=== PATIENT | male | born 1960 | race Caucasian/White ===

== ENCOUNTER 2018-03-20 11:22 | Inpatient (IN) | payer BC ==
--- NOTE | 2018-03-20 11:48 | EDM.PDOC ---
ED HPI GENERAL MEDICAL PROBLEM - General Chief Complaint: Gastrointestinal Problem Stated Complaint: CONSTIPATED,BACK PAIN Time Seen by Provider: 03/20/18 11:47 Source of Information: Reports: Patient - History of Present Illness INITIAL COMMENTS - FREE TEXT/NARRATIVE: HISTORY AND PHYSICAL: History of present illness: [Patient presents with left lower quadrant pain increasing over last couple of days rates 5 out of 10 nonradiating no nausea vomiting chills sweats states he has been having some difficulty with constipation] Review of systems: As per history of present illness and below otherwise all systems reviewed and negative. Past medical history: As per history of present illness and as reviewed below otherwise noncontributory. Surgical history: As per history of present illness and as reviewed below otherwise noncontributory. Social history: No reported history of drug or alcohol abuse. Family history: As per history of present illness and as reviewed below otherwise noncontributory. Physical exam: HEENT: Atraumatic, normocephalic, pupils reactive, negative for conjunctival pallor or scleral icterus, mucous membranes moist, throat clear, neck supple, nontender, trachea midline. Lungs: Clear to auscultation, breath sounds equal bilaterally, chest nontender. Heart: S1S2, regular, negative for clicks, rubs, or JVD. Abdomen: Soft, nondistended, nontender on right left lower quadrant tender slightly protuberant abdomen. Negative for masses or hepatosplenomegaly. Negative for costovertebral tenderness. Pelvis: Stable nontender. Genitourinary: Deferred. Rectal: Deferred. Extremities: Atraumatic, negative for cords or calf pain. Neurovascular unremarkable. Neuro: Awake, alert, oriented. Cranial nerves II through XII unremarkable. Cerebellum unremarkable. Motor and sensory unremarkable throughout. Exam nonfocal. Diagnostics: [CBC CMP troponin lipase Ua Flat and upright ]UTI abdomen pelvis with contrast Therapeutics: Normal saline bolus Cipro 400 mg IV Flagyl 500 mg IV Morphine 2 mg IV ] Impression: diverticulitis with microperforationDefinitive disposition and diagnosis as appropriate pending reevaluation and review of above. lower abdomen Pain Score (Numeric/FACES): 7 - Related Data Allergies Allergy/AdvReac Type Severity Reaction Status Date / Time nut - unspecified Allergy Facial Verified 03/20/18 11:45 Swelling sunflower seed Allergy Facial Verified 03/20/18 11:45 Swelling Home Meds: Home Meds . [No Known Home Meds] 03/20/18 [History] ED ROS GENERAL - Review of Systems Review Of Systems: See Below ED EXAM, GENERAL - Physical Exam Exam: See Below Course - Vital Signs Last Recorded V/S: Last Vital Signs Temp 96.6 F 03/20/18 11:46 Pulse 109 H 03/20/18 11:46 Resp 16 03/20/18 11:46 BP 159/138 H 03/20/18 11:46 Pulse Ox 95 03/20/18 11:46 - Orders/Labs/Meds Orders: Active Orders 24 hr Category Date Time Status UA W/MICROSCOPIC [URIN] Stat Lab 03/20/18 11:58 Ordered Ciprofloxacin in D5W [Cipro in D5W 400 MG/200 ML] 400 Med 03/20/18 14:30 Active mg Premix Bag 1 bag IV Q12H Sodium Chloride 0.9% [Normal Saline] 1,000 ml Med 03/20/18 14:24 Active IV STAT metroNIDAZOLE/Normal Saline [Flagyl 500 MG in NS 100 ML Med 03/20/18 14:24 Active ] 500 mg Premix Bag 1 bag IV ONETIME Medication Orders Ciprofloxacin/Dextrose 400 mg/ (Premix) 200 mls @ 200 mls/hr IV Q12H IVY Metronidazole 500 mg/ Premix 100 mls @ 100 mls/hr IV ONETIME ONE Stop: 03/20/18 15:23 Sodium Chloride (Normal Saline) 1,000 mls @ 999 mls/hr IV STAT ONE Stop: 03/20/18 15:24 Labs: Laboratory Tests 03/20/18 03/20/18 03/20/18 Range/Units 11:58 12:50 12:50 WBC 17.28 H (4.0-11.0) K/uL RBC 4.08 L (4.50-5.90) M/uL Hgb 13.5 (13.0-17.0) g/dL Hct 38.2 (38.0-50.0) % MCV 93.6 (80.0-98.0) fL MCH 33.1 H (27.0-32.0) pg MCHC 35.3 (31.0-37.0) g/dL RDW Std Deviation 41.0 (28.0-62.0) fl RDW Coeff of [place] 12 (11.0-15.0) % Plt Count 308 (150-400) K/uL MPV 8.90 (7.40-12.00) fL Neut % (Auto) 82.0 H (48.0-80.0) % Lymph % (Auto) 5.6 L (16.0-40.0) % [place] % (Auto) 12.2 (0.0-15.0) % Eos % (Auto) 0.1 (0.0-7.0) % Baso % (Auto) 0.1 (0.0-1.5) % Neut # (Auto) 14.2 H (1.4-5.7) K/uL Lymph # (Auto) 1.0 (0.6-2.4) K/uL [place] # (Auto) 2.1 H (0.0-0.8) K/uL Eos # (Auto) 0.0 (0.0-0.7) K/uL Baso # (Auto) 0.0 (0.0-0.1) K/uL Nucleated RBC % 0.0 /100WBC Nucleated RBCs # 0 K/uL Sodium 130 L (136-148) mmol/L Potassium 3.7 (3.5-5.1) mmol/L Chloride 95 L (98-107) mmol/L Carbon Dioxide 30.3 (21.0-32.0) mmol/L BUN 14 (7.0-18.0) mg/dL Creatinine 1.2 (0.8-1.3) mg/dL Est Cr Clr Drug Dosing 71.47 mL/min Estimated GFR (MDRD) > 60.0 ml/min Glucose 152 H (74-106) mg/dL Calcium 8.5 (8.5-10.1) mg/dL Total Bilirubin 0.6 (0.2-1.0) mg/dL AST 14 L (15-37) IU/L ALT 27 (14-63) IU/L Alkaline Phosphatase 61 (46-116) U/L Troponin I < 0.050 (0.000-0.056) ng/mL Total Protein 7.3 (6.4-8.2) g/dL Albumin 3.0 L (3.4-5.0) g/dL Globulin 4.3 H (2.0-3.5) g/dL Albumin/Globulin Ratio 0.7 L (1.3-2.8) Lipase 69 L (73-393) U/L Urine Color YELLOW Urine Appearance CLEAR Urine pH 6.0 (5.0-8.0) Ur Specific [place] 1.025 (1.001-1.035) Urine Protein 30 (NEGATIVE) mg/dL Urine Glucose (UA) NEGATIVE (NEGATIVE) mg/dL Urine Ketones 40 H (NEGATIVE) mg/dL Urine Occult Blood TRACE-INTACT (NEGATIVE) Urine Nitrite NEGATIVE (NEGATIVE) Urine Bilirubin SMALL H (NEGATIVE) Urine Ictotest NEGATIVE Urine Urobilinogen 0.2 (<2.0) EU/dL Ur Leukocyte Esterase NEGATIVE (NEGATIVE) Urine RBC 1-3 (0-2/HPF) Urine WBC 0-2 (0-5/HPF) Ur Epithelial Cells OCCASIONAL (NONE-FEW) Urine Bacteria 1+ H (NEGATIVE) Hyaline Casts 6-8 (0-2/LPF) Urine Mucus MODERATE (NONE-MOD) Meds: Medications Generic Name Dose Route Start Last Admin Trade Name Freq PRN Reason Stop Dose Admin Ciprofloxacin/Dextrose 400 mg/ 200 mls @ 200 mls/hr 03/20/18 14:30 Premix IV Q12H IVY Metronidazole 500 mg/ Premix 100 mls @ 100 mls/hr 03/20/18 14:24 IV 03/20/18 15:23 ONETIME ONE Sodium Chloride 1,000 mls @ 999 mls/hr 03/20/18 14:24 Normal Saline IV 03/20/18 15:24 STAT ONE Discontinued Medications Generic Name Dose Route Start Last Admin Trade Name Freq PRN Reason Stop Dose Admin Sodium Chloride 1,000 mls @ 999 mls/hr 03/20/18 13:06 03/20/18 14:00 Normal Saline IV 03/20/18 14:06 999 mls/hr STAT ONE Administration Iopamidol 100 ml 03/20/18 13:37 03/20/18 13:49 Isovue Multipack-370 (76%) IVPUSH 03/20/18 13:38 100 ml ONETIME STA Administration Morphine Sulfate 2 mg 03/20/18 14:24 Morphine IVPUSH 03/20/18 14:25 ONETIME ONE Departure - Departure Time of Disposition: 14:35 Disposition: Admitted As Inpatient 66 Condition: Fair Clinical Impression: Diverticulitis - Discharge Information Referrals: PCP,None [Primary Care Provider] - Forms: ED Department Discharge - My Orders Last 24 Hours: My Active Orders 03/20/18 11:58 UA W/MICROSCOPIC [URIN] Stat 03/20/18 14:24 Sodium Chloride 0.9% [Normal Saline] 1,000 ml IV STAT metroNIDAZOLE/Normal Saline [Flagyl 500 MG in NS 100 ML] 500 mg Premix Bag 1 bag IV ONETIME 03/20/18 14:30 Ciprofloxacin in D5W [Cipro in D5W 400 MG/200 ML] 400 mg Premix Bag 1 bag IV Q12H - Assessment/Plan Last 24 Hours: My Active Orders 03/20/18 11:58 UA W/MICROSCOPIC [URIN] Stat 03/20/18 14:24 Sodium Chloride 0.9% [Normal Saline] 1,000 ml IV STAT metroNIDAZOLE/Normal Saline [Flagyl 500 MG in NS 100 ML] 500 mg Premix Bag 1 bag IV ONETIME 03/20/18 14:30 Ciprofloxacin in D5W [Cipro in D5W 400 MG/200 ML] 400 mg Premix Bag 1 bag IV Q12H
[2018-03-20] MEDS ORDERED: Sodium Chloride 0.9% 1,000 ML IV ONE ×2 (13:06→14:24)
--- NOTE | 2018-03-20 13:19 | CR ---
EXAMINATION: Abdomen HISTORY: Constipation COMPARISON: None TECHNIQUE: AP and upright views obtained FINDINGS: There is no free air under the diaphragm. There is possible trace right pleural effusion. [place] amount of stool and gas is noted throughout the colon and rectum. No dilated loops of small ruma l. No abnormal calcifications identified. No organomegaly. IMPRESSION: 1. Nonobstructive bowel gas pattern without evidence of constipation. 2. Probable trace right pleural effusion.
[2018-03-20 13:26] LABS: CHLORIDE,CL 95 mmol/L (98-107); SODIUM,NA 130 mmol/L (136-148)
[2018-03-20] MEDS ORDERED: Iopamidol 755 MG/ML 500 ML Multipack Bottle IVPUSH STA (13:37)
--- NOTE | 2018-03-20 14:23 | CT ---
CT of the abdomen and pelvis with contrast. HISTORY: Pain TECHNIQUE: Axial CT images were obtained of the abdomen and pelvis following administration of 100 mL of Isovue-370 in the right antecubital fossa without complication. Coronal and sagittal reconstructi ons obtained. FINDINGS: There is a small right pleural effusion. The liver, spleen, adrenal glands, and pancreas appear normal. The gallbladder is normal. There is no bulky retroperitoneal lymphadenopathy or abdominal ascites. The kidneys enhance and function symmetrically without evidence of obstructive uropathy. There is focal wall thickening and stranding within the sigmoid region with adjacent fluid. There are a few tiny foci of extraluminal gas. Minimal free pelvic fluid is noted. Moderate adjacent sigmoid d iverticulosis. The appendix is normal. No bulky pelvic lymphadenopathy. Urinary bladder is normal. No suspicious osseous abnormalities identified. IMPRESSION: 1. Microperforated sigmoid diverticulitis. 2. Otherwise moderate sigmoid diverticulosis is noted.
[2018-03-20] MEDS ORDERED: Morphine 2 MG/ML Syringe IVPUSH ONE (14:24)
[2018-03-20] MEDS ORDERED: metroNIDAZOLE/Normal Saline 500 MG in Premix Bag 1 BAG IV ONE (14:24)
[2018-03-20] MEDS ORDERED: Ciprofloxacin in D5W 400 MG in Premix Bag 1 BAG IV SCH ×2 (14:30)
--- NOTE | 2018-03-20 15:50 | PCM.CONS ---
H&P History of Present Illness - General Date of Service: 03/20/18 Admit Problem/Dx: Admission Diagnosis/Problem Admission Diagnosis/Problem Diverticulitis Source of Information: Patient History Limitations: Reports: No Limitations - History of Present Illness Initial Comments - Free Text/Narative: Patient is a 58-year-old male who presents to the emergency room with abdominal pain. It has been going on for one week but over the last day has become more severe. He had subjective fevers and diaphoresis at home. He denies any nausea or vomiting but had no appetite. He feels bloated. His last regular bowel movement was one week ago but this morning he had a couple watery stools. He denies melena or hematochezia. He presented to the emergency room. He was mildly tachycardic. His white blood count is 17,000. CT the abdomen and pelvis shows diverticulitis with a small microperforation. He's never had a colonoscopy. He denies any recent changes in his bowel habits other than described above. He denies any family history of colon cancer. He does not have a primary care provider. lower abdomen Pain Score (Numeric/FACES): 7 - Related Data Allergies/Adverse Reactions: Allergies Allergy/AdvReac Type Severity Reaction Status Date / Time nut - unspecified Allergy Facial Verified 03/20/18 11:45 Swelling sunflower seed Allergy Facial Verified 03/20/18 11:45 Swelling Home Medications: Home Meds . [No Known Home Meds] 03/20/18 [History] Past Medical History - Past Health History Medical/Surgical History: Denies Medical/Surgical History - Past Surgical History GI Surgical History: Reports: Appendectomy Social & Family History - Family History Family Medical History: Noncontributory - Tobacco Use Smoking Status *Q: Current Every Day Smoker Years of Tobacco use: 30 Packs/Tins Daily: 0.3 - Caffeine Use Caffeine Use: Reports: None - Recreational Drug Use Recreational Drug Use: No H&P Review of Systems - Review of Systems: Review Of Systems: ROS reveals no pertinent complaints other than HPI. Exam - Exam Exam: See Below - Vital Signs Vital Signs: Last Vital Signs Temp 35.9 C 03/20/18 11:46 Pulse 109 H 03/20/18 11:46 Resp 16 03/20/18 11:46 BP 159/138 H 03/20/18 11:46 Pulse Ox 95 03/20/18 11:46 Weight: 106.594 kg - Exam General: Alert, Oriented HEENT: Conjunctiva Clear, Mucosa Moist & [place], Posterior Pharynx Clear Neck: Supple Lungs: Normal Respiratory Effort Cardiovascular: Regular Rate GI/Abdominal Exam: Other (He has a rotund abdomen that appears distended. He has some firmness and tenderness in the left lower quadrant. He is maximally tender along the lower midline. There is no rebound or guarding and the remainder of his abdomen.) - Patient Data Lab Results Last 24 hrs: Laboratory Results - last 24 hr 03/20/18 03/20/18 03/20/18 Range/Units 11:58 12:50 12:50 WBC 17.28 H (4.0-11.0) K/uL RBC 4.08 L (4.50-5.90) M/uL Hgb 13.5 (13.0-17.0) g/dL Hct 38.2 (38.0-50.0) % MCV 93.6 (80.0-98.0) fL MCH 33.1 H (27.0-32.0) pg MCHC 35.3 (31.0-37.0) g/dL RDW Std Deviation 41.0 (28.0-62.0) fl RDW Coeff of [place] 12 (11.0-15.0) % Plt Count 308 (150-400) K/uL MPV 8.90 (7.40-12.00) fL Neut % (Auto) 82.0 H (48.0-80.0) % Lymph % (Auto) 5.6 L (16.0-40.0) % [place] % (Auto) 12.2 (0.0-15.0) % Eos % (Auto) 0.1 (0.0-7.0) % Baso % (Auto) 0.1 (0.0-1.5) % Neut # (Auto) 14.2 H (1.4-5.7) K/uL Lymph # (Auto) 1.0 (0.6-2.4) K/uL [place] # (Auto) 2.1 H (0.0-0.8) K/uL Eos # (Auto) 0.0 (0.0-0.7) K/uL Baso # (Auto) 0.0 (0.0-0.1) K/uL Nucleated RBC % 0.0 /100WBC Nucleated RBCs # 0 K/uL Sodium 130 L (136-148) mmol/L Potassium 3.7 (3.5-5.1) mmol/L Chloride 95 L (98-107) mmol/L Carbon Dioxide 30.3 (21.0-32.0) mmol/L BUN 14 (7.0-18.0) mg/dL Creatinine 1.2 (0.8-1.3) mg/dL Est Cr Clr Drug Dosing 71.47 mL/min Estimated GFR (MDRD) > 60.0 ml/min Glucose 152 H (74-106) mg/dL Calcium 8.5 (8.5-10.1) mg/dL Total Bilirubin 0.6 (0.2-1.0) mg/dL AST 14 L (15-37) IU/L ALT 27 (14-63) IU/L Alkaline Phosphatase 61 (46-116) U/L Troponin I < 0.050 (0.000-0.056) ng/mL Total Protein 7.3 (6.4-8.2) g/dL Albumin 3.0 L (3.4-5.0) g/dL Globulin 4.3 H (2.0-3.5) g/dL Albumin/Globulin Ratio 0.7 L (1.3-2.8) Lipase 69 L (73-393) U/L Urine Color YELLOW Urine Appearance CLEAR Urine pH 6.0 (5.0-8.0) Ur Specific [place] 1.025 (1.001-1.035) Urine Protein 30 (NEGATIVE) mg/dL Urine Glucose (UA) NEGATIVE (NEGATIVE) mg/dL Urine Ketones 40 H (NEGATIVE) mg/dL Urine Occult Blood TRACE-INTACT (NEGATIVE) Urine Nitrite NEGATIVE (NEGATIVE) Urine Bilirubin SMALL H (NEGATIVE) Urine Ictotest NEGATIVE Urine Urobilinogen 0.2 (<2.0) EU/dL Ur Leukocyte Esterase NEGATIVE (NEGATIVE) Urine RBC 1-3 (0-2/HPF) Urine WBC 0-2 (0-5/HPF) Ur Epithelial Cells OCCASIONAL (NONE-FEW) Urine Bacteria 1+ H (NEGATIVE) Hyaline Casts 6-8 (0-2/LPF) Urine Mucus MODERATE (NONE-MOD) Result Diagrams: 03/20/18 12:50 03/20/18 12:50 Consult PN Assessment/Plan (1) Diverticulitis SNOMED Code(s): 303859620 Code(s): K57.92 - DVTRCLI OF INTEST, PART UNSP, W/O PERF OR ABSCESS W/O BLEED Current Visit: Yes Problem List Initiated/Reviewed/Updated: Yes Plan: The patient and I discussed the pathophysiology of diverticulosis and diverticulitis. At this point in time this appears to be uncomplicated. I recommend that the patient be kept nothing by mouth, given IV pain medicine, IV fluid resuscitation and the started on broad-spectrum antibiotics per the medicine team. I will continue to follow the patient. I explained to him that should his pain get worse or he develop any complications associated with this he may require surgery. If the infection resolves/his wbc goes down to normal with IV antibiotics and his pain improves, he can be transitioned to oral antibiotics and started on a regular diet. He would need to take these antibiotics for 2 weeks. He'll follow up with me in clinic then afterwards to schedule him for an outpatient colonoscopy.
[2018-03-20] MEDS ORDERED: Morphine 2 MG/ML Syringe IVPUSH PRN (18:55)
[2018-03-20] MEDS ORDERED: Ondansetron 4 MG/2 ML SDV IVPUSH PRN (18:56)
[2018-03-20] MEDS: Sodium Chloride 0.9% 1,000 ML IV SCH (19:18)
--- NOTE | 2018-03-20 22:54 | PCM.HP ---
H&P History of Present Illness - General Date of Service: 03/20/18 Admit Problem/Dx: Admission Diagnosis/Problem Admission Diagnosis/Problem Diverticulitis - History of Present Illness Initial Comments - Free Text/Narative: 58 yo male who presents with one week of lower abdominal pain. It became more severe today. He denies any blood in stool, diarrhea or fevers. CT scan of abdomen showed diverticulitis with microperforation. lower abdomen Pain Score (Numeric/FACES): 4 - Related Data Allergies/Adverse Reactions: Allergies Allergy/AdvReac Type Severity Reaction Status Date / Time nut - unspecified Allergy Facial Verified 03/20/18 11:45 Swelling sunflower seed Allergy Facial Verified 03/20/18 11:45 Swelling Home Medications: Home Meds . [No Known Home Meds] 03/20/18 [History] Past Medical History - Past Health History Medical/Surgical History: Denies Medical/Surgical History - Past Surgical History GI Surgical History: Reports: Appendectomy Social & Family History - Family History Family Medical History: Noncontributory Other HEENT Family History: COPD mother. father lung cancer - Tobacco Use Smoking Status *Q: Current Every Day Smoker Years of Tobacco use: 30 Packs/Tins Daily: 0.3 - Caffeine Use Caffeine Use: Reports: None Other Caffeine Use: 3 cups/day - Recreational Drug Use Recreational Drug Use: No H&P Review of Systems - Review of Systems: Review Of Systems: ROS reveals no pertinent complaints other than HPI. Exam - Exam Exam: See Below - Vital Signs Vital Signs: Last Vital Signs Temp 37.9 C 03/20/18 20:00 Pulse 90 03/20/18 20:00 Resp 20 03/20/18 20:00 BP 146/92 H 03/20/18 20:00 Pulse Ox 93 L 03/20/18 20:00 Weight: 106.594 kg - Exam General: Alert, Oriented HEENT: Mucosa Moist & [place] Lungs: Clear to Auscultation, Normal Respiratory Effort Cardiovascular: Regular Rate, Regular Rhythm GI/Abdominal Exam: Normal Bowel Sounds, Soft, Non-Tender Extremities: Non-Tender, No Pedal Edema Skin: Warm, Dry, Intact - Patient Data Lab Results Last 24 hrs: Laboratory Results - last 24 hr 03/20/18 03/20/18 03/20/18 Range/Units 11:58 12:50 12:50 WBC 17.28 H (4.0-11.0) K/uL RBC 4.08 L (4.50-5.90) M/uL Hgb 13.5 (13.0-17.0) g/dL Hct 38.2 (38.0-50.0) % MCV 93.6 (80.0-98.0) fL MCH 33.1 H (27.0-32.0) pg MCHC 35.3 (31.0-37.0) g/dL RDW Std Deviation 41.0 (28.0-62.0) fl RDW Coeff of [place] 12 (11.0-15.0) % Plt Count 308 (150-400) K/uL MPV 8.90 (7.40-12.00) fL Neut % (Auto) 82.0 H (48.0-80.0) % Lymph % (Auto) 5.6 L (16.0-40.0) % [place] % (Auto) 12.2 (0.0-15.0) % Eos % (Auto) 0.1 (0.0-7.0) % Baso % (Auto) 0.1 (0.0-1.5) % Neut # (Auto) 14.2 H (1.4-5.7) K/uL Lymph # (Auto) 1.0 (0.6-2.4) K/uL [place] # (Auto) 2.1 H (0.0-0.8) K/uL Eos # (Auto) 0.0 (0.0-0.7) K/uL Baso # (Auto) 0.0 (0.0-0.1) K/uL Nucleated RBC % 0.0 /100WBC Nucleated RBCs # 0 K/uL Sodium 130 L (136-148) mmol/L Potassium 3.7 (3.5-5.1) mmol/L Chloride 95 L (98-107) mmol/L Carbon Dioxide 30.3 (21.0-32.0) mmol/L BUN 14 (7.0-18.0) mg/dL Creatinine 1.2 (0.8-1.3) mg/dL Est Cr Clr Drug Dosing 71.47 mL/min Estimated GFR (MDRD) > 60.0 ml/min Glucose 152 H (74-106) mg/dL Calcium 8.5 (8.5-10.1) mg/dL Total Bilirubin 0.6 (0.2-1.0) mg/dL AST 14 L (15-37) IU/L ALT 27 (14-63) IU/L Alkaline Phosphatase 61 (46-116) U/L Troponin I < 0.050 (0.000-0.056) ng/mL Total Protein 7.3 (6.4-8.2) g/dL Albumin 3.0 L (3.4-5.0) g/dL Globulin 4.3 H (2.0-3.5) g/dL Albumin/Globulin Ratio 0.7 L (1.3-2.8) Lipase 69 L (73-393) U/L Urine Color YELLOW Urine Appearance CLEAR Urine pH 6.0 (5.0-8.0) Ur Specific [place] 1.025 (1.001-1.035) Urine Protein 30 (NEGATIVE) mg/dL Urine Glucose (UA) NEGATIVE (NEGATIVE) mg/dL Urine Ketones 40 H (NEGATIVE) mg/dL Urine Occult Blood TRACE-INTACT (NEGATIVE) Urine Nitrite NEGATIVE (NEGATIVE) Urine Bilirubin SMALL H (NEGATIVE) Urine Ictotest NEGATIVE Urine Urobilinogen 0.2 (<2.0) EU/dL Ur Leukocyte Esterase NEGATIVE (NEGATIVE) Urine RBC 1-3 (0-2/HPF) Urine WBC 0-2 (0-5/HPF) Ur Epithelial Cells OCCASIONAL (NONE-FEW) Urine Bacteria 1+ H (NEGATIVE) Hyaline Casts 6-8 (0-2/LPF) Urine Mucus MODERATE (NONE-MOD) Result Diagrams: 03/21/18 05:50 03/21/18 05:50 Problem List Initiated/Reviewed/Updated: Yes Orders Last 24hrs: Active Orders 24 hr Category Date Time Status Admission Status [Patient Status] [ADT] Stat ADT 03/20/18 14:37 Active Oxygen Therapy [RC] PRN Care 03/20/18 22:48 Ordered Up With Assistance [RC] ASDIRECTED Care 03/20/18 22:48 Ordered VTE/DVT Education [RC] PER UNIT ROUTINE Care 03/20/18 22:48 Ordered Vital Signs [RC] Q4H Care 03/20/18 22:48 Ordered NPO [Nothing Per Oral Diet] [DIET] Diet 03/21/18 Breakfast Active BASIC METABOLIC PANEL,BMP [CHEM] Routine Lab 03/21/18 05:00 Ordered CBC WITH AUTO DIFF [HEME] Routine Lab 03/21/18 05:00 Ordered UA W/MICROSCOPIC [URIN] Stat Lab 03/20/18 11:58 Ordered Ciprofloxacin in D5W [Cipro in D5W 400 MG/200 ML] 400 Med 03/21/18 02:00 Active mg Premix Bag 1 bag IV Q12H Heparin Sodium Med 03/20/18 23:00 Ordered 5,000 units SUBCUT Q8H Morphine Med 03/20/18 18:55 Active 2 mg IVPUSH Q3H PRN Ondansetron [Zofran] Med 03/20/18 18:56 Active 4 mg IVPUSH Q3H PRN Sodium Chloride 0.9% [Normal Saline] 1,000 ml Med 03/20/18 19:00 Active IV ASDIRECTED metroNIDAZOLE/Normal Saline [Flagyl 500 MG in NS 100 ML Med 03/21/18 01:00 Active ] 500 mg Premix Bag 1 bag IV Q8H Resuscitation Status Routine Resus Stat 03/20/18 22:48 Ordered Medication Orders Heparin Sodium (Porcine) (Heparin Sodium) 5,000 units SUBCUT Q8H IVY Metronidazole 500 mg/ Premix 100 mls @ 100 mls/hr IV Q8H IVY Sodium Chloride (Normal Saline) 1,000 mls @ 125 mls/hr IV ASDIRECTED IVY Last Admin: 03/20/18 19:18 Dose: 125 mls/hr Ciprofloxacin/Dextrose 400 mg/ (Premix) 200 mls @ 200 mls/hr IV Q12H IVY Morphine Sulfate (Morphine) 2 mg IVPUSH Q3H PRN PRN Reason: Pain Last Admin: 03/20/18 19:18 Dose: 2 mg Ondansetron HCl (Zofran) 4 mg IVPUSH Q3H PRN PRN Reason: Nausea/Vomiting Assessment/Plan Comment:: 58 yo male admitted with acute diverticulitis with microperforation. We will treat with bowel rest, IV fluids, and Ciprofloxacin and Flagyl.
[2018-03-20] MEDS: Heparin Sodium 5,000 Units/ML Vial SUBCUT SCH (23:56)
[2018-03-21] MEDS: metroNIDAZOLE/Normal Saline 500 MG in Premix Bag 1 BAG IV SCH ×3 (01:16→17:01)
[2018-03-21] MEDS: Ciprofloxacin in D5W 400 MG in Premix Bag 1 BAG IV SCH ×4 (02:27→13:29)
[2018-03-21] MEDS: Sodium Chloride 0.9% 1,000 ML IV SCH ×2 (05:02→14:59)
[2018-03-21] MEDS: Heparin Sodium 5,000 Units/ML Vial SUBCUT SCH ×3 (06:17→23:46)
[2018-03-21 07:00] LABS: CHLORIDE,CL 104 mmol/L (98-107); SODIUM,NA 139 mmol/L (136-148)
--- NOTE | 2018-03-21 10:26 | PCM.PN ---
- General Info Date of Service: 03/21/18 - Review of Systems Systems Review Comment:: abdominal pain improving - Patient Data Vitals - Most Recent: Last Vital Signs Temp 37.1 C 03/21/18 08:00 Pulse 73 03/21/18 08:00 Resp 18 03/21/18 08:00 BP 156/98 H 03/21/18 08:00 Pulse Ox 93 L 03/21/18 08:00 Weight - Most Recent: 106.594 kg I&O - Last 24 Hours: Intake & Output 03/20/18 03/21/18 03/21/18 22:59 06:59 14:59 Intake Total 2100 1310 Output Total 1095 Balance 2100 215 Lab Results Last 24 Hours: Laboratory Results - last 24 hr 03/20/18 03/20/18 03/20/18 Range/Units 11:58 12:50 12:50 WBC 17.28 H (4.0-11.0) K/uL RBC 4.08 L (4.50-5.90) M/uL Hgb 13.5 (13.0-17.0) g/dL Hct 38.2 (38.0-50.0) % MCV 93.6 (80.0-98.0) fL MCH 33.1 H (27.0-32.0) pg MCHC 35.3 (31.0-37.0) g/dL RDW Std Deviation 41.0 (28.0-62.0) fl RDW Coeff of Collin 12 (11.0-15.0) % Plt Count 308 (150-400) K/uL MPV 8.90 (7.40-12.00) fL Neut % (Auto) 82.0 H (48.0-80.0) % Lymph % (Auto) 5.6 L (16.0-40.0) % [place]ier % (Auto) 12.2 (0.0-15.0) % Eos % (Auto) 0.1 (0.0-7.0) % Baso % (Auto) 0.1 (0.0-1.5) % Neut # (Auto) 14.2 H (1.4-5.7) K/uL Lymph # (Auto) 1.0 (0.6-2.4) K/uL Lanier # (Auto) 2.1 H (0.0-0.8) K/uL Eos # (Auto) 0.0 (0.0-0.7) K/uL Baso # (Auto) 0.0 (0.0-0.1) K/uL Nucleated RBC % 0.0 /100WBC Nucleated RBCs # 0 K/uL Sodium 130 L (136-148) mmol/L Potassium 3.7 (3.5-5.1) mmol/L Chloride 95 L (98-107) mmol/L Carbon Dioxide 30.3 (21.0-32.0) mmol/L BUN 14 (7.0-18.0) mg/dL Creatinine 1.2 (0.8-1.3) mg/dL Est Cr Clr Drug Dosing 71.47 mL/min Estimated GFR (MDRD) > 60.0 ml/min Glucose 152 H (74-106) mg/dL Calcium 8.5 (8.5-10.1) mg/dL Total Bilirubin 0.6 (0.2-1.0) mg/dL AST 14 L (15-37) IU/L ALT 27 (14-63) IU/L Alkaline Phosphatase 61 (46-116) U/L Troponin I < 0.050 (0.000-0.056) ng/mL Total Protein 7.3 (6.4-8.2) g/dL Albumin 3.0 L (3.4-5.0) g/dL Globulin 4.3 H (2.0-3.5) g/dL Albumin/Globulin Ratio 0.7 L (1.3-2.8) Lipase 69 L (73-393) U/L Urine Color YELLOW Urine Appearance CLEAR Urine pH 6.0 (5.0-8.0) Ur Specific [place] 1.025 (1.001-1.035) Urine Protein 30 (NEGATIVE) mg/dL Urine Glucose (UA) NEGATIVE (NEGATIVE) mg/dL Urine Ketones 40 H (NEGATIVE) mg/dL Urine Occult Blood TRACE-INTACT (NEGATIVE) Urine Nitrite NEGATIVE (NEGATIVE) Urine Bilirubin SMALL H (NEGATIVE) Urine Ictotest NEGATIVE Urine Urobilinogen 0.2 (<2.0) EU/dL Ur Leukocyte Esterase NEGATIVE (NEGATIVE) Urine RBC 1-3 (0-2/HPF) Urine WBC 0-2 (0-5/HPF) Ur Epithelial Cells OCCASIONAL (NONE-FEW) Urine Bacteria 1+ H (NEGATIVE) Hyaline Casts 6-8 (0-2/LPF) Urine Mucus MODERATE (NONE-MOD) 03/21/18 03/21/18 Range/Units 05:50 05:50 WBC 11.52 H (4.0-11.0) K/uL RBC 3.71 L (4.50-5.90) M/uL Hgb 12.1 L (13.0-17.0) g/dL Hct 35.9 L (38.0-50.0) % MCV 96.8 (80.0-98.0) fL MCH 32.6 H (27.0-32.0) pg MCHC 33.7 (31.0-37.0) g/dL RDW Std Deviation 43.8 (28.0-62.0) fl RDW Coeff of Collin 13 (11.0-15.0) % Plt Count 320 (150-400) K/uL MPV 9.20 (7.40-12.00) fL Neut % (Auto) 75.6 (48.0-80.0) % Lymph % (Auto) 13.4 L (16.0-40.0) % Lanier % (Auto) 10.0 (0.0-15.0) % Eos % (Auto) 0.7 (0.0-7.0) % Baso % (Auto) 0.3 (0.0-1.5) % Neut # (Auto) 8.7 H (1.4-5.7) K/uL Lymph # (Auto) 1.5 (0.6-2.4) K/uL [place]ier # (Auto) 1.2 H (0.0-0.8) K/uL Eos # (Auto) 0.1 (0.0-0.7) K/uL Baso # (Auto) 0.0 (0.0-0.1) K/uL Nucleated RBC % 0.0 /100WBC Nucleated RBCs # 0 K/uL Sodium 139 (136-148) mmol/L Potassium 4.2 (3.5-5.1) mmol/L Chloride 104 (98-107) mmol/L Carbon Dioxide 30.1 (21.0-32.0) mmol/L BUN 11 (7.0-18.0) mg/dL Creatinine 1.1 (0.8-1.3) mg/dL Est Cr Clr Drug Dosing 79.15 mL/min Estimated GFR (MDRD) > 60.0 ml/min Glucose 93 (74-106) mg/dL Calcium 8.1 L (8.5-10.1) mg/dL Total Bilirubin (0.2-1.0) mg/dL AST (15-37) IU/L ALT (14-63) IU/L Alkaline Phosphatase (46-116) U/L Troponin I (0.000-0.056) ng/mL Total Protein (6.4-8.2) g/dL Albumin (3.4-5.0) g/dL Globulin (2.0-3.5) g/dL Albumin/Globulin Ratio (1.3-2.8) Lipase (73-393) U/L Urine Color Urine Appearance Urine pH (5.0-8.0) Ur Specific [place] (1.001-1.035) Urine Protein (NEGATIVE) mg/dL Urine Glucose (UA) (NEGATIVE) mg/dL Urine Ketones (NEGATIVE) mg/dL Urine Occult Blood (NEGATIVE) Urine Nitrite (NEGATIVE) Urine Bilirubin (NEGATIVE) Urine Ictotest Urine Urobilinogen (<2.0) EU/dL Ur Leukocyte Esterase (NEGATIVE) Urine RBC (0-2/HPF) Urine WBC (0-5/HPF) Ur Epithelial Cells (NONE-FEW) Urine Bacteria (NEGATIVE) Hyaline Casts (0-2/LPF) Urine Mucus (NONE-MOD) Med Orders - Current: Current Medications Heparin Sodium (Porcine) (Heparin Sodium) 5,000 units SUBCUT Q8H [facility] Last Admin: 03/21/18 06:17 Dose: 5,000 units Metronidazole 500 mg/ Premix 100 mls @ 100 mls/hr IV Q8H [facility] Last Admin: 03/21/18 08:39 Dose: 100 mls/hr Sodium Chloride (Normal Saline) 1,000 mls @ 125 mls/hr IV ASDIRECTED [facility] Last Admin: 03/21/18 05:02 Dose: 125 mls/hr Ciprofloxacin/Dextrose 400 mg/ (Premix) 200 mls @ 200 mls/hr IV Q12H [facility] Last Infusion: 03/21/18 03:45 Dose: Infused Morphine Sulfate (Morphine) 2 mg IVPUSH Q3H PRN PRN Reason: Pain Last Admin: 03/20/18 19:18 Dose: 2 mg Ondansetron HCl (Zofran) 4 mg IVPUSH Q3H PRN PRN Reason: Nausea/Vomiting Discontinued Medications Sodium Chloride (Normal Saline) 1,000 mls @ 999 mls/hr IV STAT ONE Stop: 03/20/18 14:06 Last Admin: 03/20/18 14:00 Dose: 999 mls/hr Ciprofloxacin/Dextrose 400 mg/ (Premix) 200 mls @ 200 mls/hr IV Q12H [facility] Last Admin: 03/20/18 14:52 Dose: 200 mls/hr Metronidazole 500 mg/ Premix 100 mls @ 100 mls/hr IV ONETIME ONE Stop: 03/20/18 15:23 Last Admin: 03/20/18 16:56 Dose: 100 mls/hr Sodium Chloride (Normal Saline) 1,000 mls @ 999 mls/hr IV STAT ONE Stop: 03/20/18 15:24 Last Admin: 03/20/18 15:03 Dose: 999 mls/hr Iopamidol (Isovue Multipack-370 (76%)) 100 ml IVPUSH ONETIME STA Stop: 03/20/18 13:38 Last Admin: 03/20/18 13:49 Dose: 100 ml Morphine Sulfate (Morphine) 2 mg IVPUSH ONETIME ONE Stop: 03/20/18 14:25 Last Admin: 03/20/18 14:50 Dose: 2 mg - Exam General: Alert, Oriented Lungs: Clear to Auscultation, Normal Respiratory Effort Cardiovascular: Regular Rate, Regular Rhythm GI/Abdominal Exam: Normal Bowel Sounds, Soft, Non-Tender Extremities: Non-Tender, No Pedal Edema Skin: Warm, Dry, Intact - Problem List Review Problem List Initiated/Reviewed/Updated: Yes - My Orders Last 24 Hours: My Active Orders 03/20/18 18:55 Morphine 2 mg IVPUSH Q3H PRN 03/20/18 18:56 Ondansetron [Zofran] 4 mg IVPUSH Q3H PRN 03/20/18 19:00 Sodium Chloride 0.9% [Normal Saline] 1,000 ml IV ASDIRECTED 03/20/18 22:48 Oxygen Therapy [RC] PRN Up With Assistance [RC] ASDIRECTED Vital Signs [RC] Q4H Resuscitation Status Routine 03/20/18 23:00 Heparin Sodium 5,000 units SUBCUT Q8H 03/21/18 01:00 metroNIDAZOLE/Normal Saline [Flagyl 500 MG in NS 100 ML] 500 mg Premix Bag 1 bag IV Q8H 03/21/18 02:00 Ciprofloxacin in D5W [Cipro in D5W 400 MG/200 ML] 400 mg Premix Bag 1 bag IV Q12H 03/21/18 Breakfast NPO [Nothing Per Oral Diet] [DIET] 03/22/18 05:11 BASIC METABOLIC PANEL,BMP [CHEM] AM CBC WITH AUTO DIFF [HEME] AM 03/23/18 05:11 BASIC METABOLIC PANEL,BMP [CHEM] AM CBC WITH AUTO DIFF [HEME] AM - Plan Plan:: 58 yo male admitted with acute diverticulitis with microperforation. White count and pain is improving. We will continue Ciprofloxacin and Flagyl.
--- NOTE | 2018-03-21 13:28 | PCM.SN ---
- Free Text/Narrative Note: Patient's abdominal pain has improved. He had 2 bowel movements this morning. He denies any fevers or chills. He denies any nausea or vomiting. His white blood cell count is down to 11.5 K. Vitals were stable overnight. Patient can advance his diet as tolerated and be transitioned over to oral medications. He can follow-up with me in clinic in 2 weeks to discuss diagnostic colonoscopy. Call with any questions or concerns.
[2018-03-22] MEDS: Sodium Chloride 0.9% 1,000 ML IV SCH ×2 (00:09→09:16)
[2018-03-22] MEDS: metroNIDAZOLE/Normal Saline 500 MG in Premix Bag 1 BAG IV SCH ×2 (00:57→09:15)
[2018-03-22] MEDS: Ciprofloxacin in D5W 400 MG in Premix Bag 1 BAG IV SCH ×2 (02:20)
[2018-03-22] MEDS: Heparin Sodium 5,000 Units/ML Vial SUBCUT SCH (07:21)
[2018-03-22 07:36] LABS: CHLORIDE,CL 104 mmol/L (98-107); SODIUM,NA 139 mmol/L (136-148)
--- NOTE | 2018-03-22 22:24 | PCM.DCSUM1 ---
Discharge Summary - Hospital Course Diagnosis: Stroke: No - Discharge Data Discharge Disposition: Home, Self-Care 01 Condition: Fair - Patient Instructions Diet: Full Liquid Diet Activity: As Tolerated Driving: May Drive Today Showering/Bathing: May Shower - Discharge Plan Prescriptions/Med Rec: Ciprofloxacin [Ciprofloxacin HCl] 500 mg PO BID #28 tablet metroNIDAZOLE [Flagyl] 500 mg PO TID #52 tablet Home Medications: Home Meds Ciprofloxacin [Ciprofloxacin HCl] 500 mg PO BID #28 tablet 03/22/18 [Rx] metroNIDAZOLE [Flagyl] 500 mg PO TID #52 tablet 03/22/18 [Rx] Patient Handouts: Diverticulitis, [id number], Ciprofloxacin tablets, Metronidazole tablets or capsules Referrals: [facility] [Outside] Britany Denton MD [Physician] - 04/04/18 9:30 am Carol Cabrales MD [Physician] - 03/29/18 3:15 pm - Patient Data Vitals - Most Recent: Last Vital Signs Temp 98.1 F 03/22/18 11:55 Pulse 70 03/22/18 11:55 Resp 20 03/22/18 11:55 BP 165/107 H 03/22/18 11:55 Pulse Ox 96 03/22/18 11:55 Weight - Most Recent: 235 lb I&O - Last 24 hours: Intake & Output 03/22/18 03/22/18 03/22/18 06:59 14:59 22:59 Intake Total 2610 1600 Output Total 750 1200 Balance 1860 400 Lab Results - Last 24 hrs: Laboratory Results - last 24 hr 03/22/18 03/22/18 Range/Units 06:40 06:40 WBC 5.76 (4.0-11.0) K/uL RBC 3.87 L (4.50-5.90) M/uL Hgb 12.5 L (13.0-17.0) g/dL Hct 36.9 L (38.0-50.0) % MCV 95.3 (80.0-98.0) fL MCH 32.3 H (27.0-32.0) pg MCHC 33.9 (31.0-37.0) g/dL RDW Std Deviation 42.6 (28.0-62.0) fl RDW Coeff of Collin 12 (11.0-15.0) % Plt Count 321 (150-400) K/uL MPV 9.00 (7.40-12.00) fL Neut % (Auto) 56.9 (48.0-80.0) % Lymph % (Auto) 24.7 (16.0-40.0) % [place] % (Auto) 14.1 (0.0-15.0) % Eos % (Auto) 3.8 (0.0-7.0) % Baso % (Auto) 0.5 (0.0-1.5) % Neut # (Auto) 3.3 (1.4-5.7) K/uL Lymph # (Auto) 1.4 (0.6-2.4) K/uL [place] # (Auto) 0.8 (0.0-0.8) K/uL Eos # (Auto) 0.2 (0.0-0.7) K/uL Baso # (Auto) 0.0 (0.0-0.1) K/uL Nucleated RBC % 0.0 /100WBC Nucleated RBCs # 0 K/uL Sodium 139 (136-148) mmol/L Potassium 3.8 (3.5-5.1) mmol/L Chloride 104 (98-107) mmol/L Carbon Dioxide 26.9 (21.0-32.0) mmol/L BUN 9 (7.0-18.0) mg/dL Creatinine 1.0 (0.8-1.3) mg/dL Est Cr Clr Drug Dosing 87.07 mL/min Estimated GFR (MDRD) > 60.0 ml/min Glucose 98 (74-106) mg/dL Calcium 8.0 L (8.5-10.1) mg/dL Med Orders - Current: Current Medications Discontinued Medications Heparin Sodium (Porcine) (Heparin Sodium) 5,000 units SUBCUT Q8H [facility] Last Admin: 03/22/18 07:21 Dose: 5,000 units Sodium Chloride (Normal Saline) 1,000 mls @ 999 mls/hr IV STAT ONE Stop: 03/20/18 14:06 Last Admin: 03/20/18 14:00 Dose: 999 mls/hr Ciprofloxacin/Dextrose 400 mg/ (Premix) 200 mls @ 200 mls/hr IV Q12H [facility] Last Admin: 03/20/18 14:52 Dose: 200 mls/hr Metronidazole 500 mg/ Premix 100 mls @ 100 mls/hr IV ONETIME ONE Stop: 03/20/18 15:23 Last Admin: 03/20/18 16:56 Dose: 100 mls/hr Sodium Chloride (Normal Saline) 1,000 mls @ 999 mls/hr IV STAT ONE Stop: 03/20/18 15:24 Last Admin: 03/20/18 15:03 Dose: 999 mls/hr Metronidazole 500 mg/ Premix 100 mls @ 100 mls/hr IV Q8H [facility] Last Admin: 03/22/18 09:15 Dose: 100 mls/hr Sodium Chloride (Normal Saline) 1,000 mls @ 125 mls/hr IV ASDIRECTED [facility] Last Admin: 03/22/18 09:16 Dose: 125 mls/hr Ciprofloxacin/Dextrose 400 mg/ (Premix) 200 mls @ 200 mls/hr IV Q12H [facility] Last Admin: 03/22/18 02:20 Dose: 200 mls/hr Iopamidol (Isovue Multipack-370 (76%)) 100 ml IVPUSH ONETIME STA Stop: 03/20/18 13:38 Last Admin: 03/20/18 13:49 Dose: 100 ml Morphine Sulfate (Morphine) 2 mg IVPUSH ONETIME ONE Stop: 03/20/18 14:25 Last Admin: 03/20/18 14:50 Dose: 2 mg Morphine Sulfate (Morphine) 2 mg IVPUSH Q3H PRN PRN Reason: Pain Last Admin: 03/20/18 19:18 Dose: 2 mg Ondansetron HCl (Zofran) 4 mg IVPUSH Q3H PRN PRN Reason: Nausea/Vomiting
== END 2018-03-22 12:33 | disposition home or self-care (01) | DRG 244 ==
LOC: MW.ED 11:22 → MW.MS 14:37
PROVIDERS: ADMIT Internal Medicine; ATTEND Internal Medicine
DX: K57.20 Diverticulitis of large intestine with perforation and abscess without bleeding (principal); F17.210 Nicotine dependence, cigarettes, uncomplicated
CPT/HCPCS: 36415; 74019; 74019-26; 74177; 74177-26; 80048; 80053; 81001; 83690; 84484; 85025; 96361; 96374; 96375; 99282; 99285-25; J0744; J1644; J2270; J3490; J7040; Q9967

== ENCOUNTER 2023-12-19 19:37 | Emergency (ER) | payer BC ==
[2023-12-19] MEDS: Famotidine 20 MG/2 ML SDV IVPUSH ONE (19:48)
[2023-12-19] MEDS: methylPREDNISolone Sodium Succinate 125 MG/2 ML SDV IVPUSH ONE (19:48)
[2023-12-19] MEDS: Tranexamic Acid 1,000 MG in Sodium Chloride 0.9% 100 ML IV ONE (19:48)
[2023-12-19] MEDS: Sodium Chloride 0.9% 10 ML Syringe FLUSH PRN (19:49)
[2023-12-19] MEDS: Sodium Chloride 0.9% 2.5 ML Syringe FLUSH PRN (19:49)
[2023-12-19] MEDS: Racepinephrine 2.25% 0.5 ML Neb Soln NEB ONE (19:49)
[2023-12-19] MEDS: Sodium Chloride 0.9% Inhalation Soln 3 ML Neb INH PRN (19:50)
[2023-12-19 20:08] LABS: BASOPHILS ABSOLUTE AUTO 0.06 K/uL (0.00-0.20); BASOPHILS PERCENT AUTO 0.5 % (0.0-1.0); EOSINOPHILS ABSOLUTE AUTO 0.15 K/uL (0.00-0.45); EOSINOPHILS PERCENT AUTO 1.4 % (0.0-6.0); HEMATOCRIT 39.5 % (42.0-52.0); HEMOGLOBIN 14.7 g/dL (14.0-18.0); IMMATURE GRAN ABSOLUTE AUTO 0.03 K/uL (0.00-0.05); IMMATURE GRAN PERCENT AUTO 0.3 % (0.0-0.4); LYMPHOCYTES ABSOLUTE AUTO 1.88 K/uL (1.00-4.80); LYMPHOCYTES PERCENT AUTO 17.1 % (24.0-44.0); MEAN CORPUSCULAR HEMOGLOBIN 34.8 pg (28.0-32.0); MEAN CORPUSCULAR HGB CONC 37.2 g/dL (32.0-36.0); MEAN CORPUSCULAR VOLUME 93.4 fL (83.0-99.0); MEAN PLATELET VOLUME 8.9 fL (9.4-12.4); MONOCYTES ABSOLUTE AUTO 0.88 K/uL (0.00-0.80); NEUTROPHILS ABSOLUTE AUTO 8.02 K/uL (1.80-7.70); NEUTROPHILS PERCENT AUTO 72.7 % (41.0-71.0); NRBC ABSOLUTE 0.03 K/uL (0.00-0.02); NRBC PERCENT 0.3 /100WBC (0.0-0.2); PLATELET COUNT,PLT 282 K/uL (150-400); RED BLOOD CELL COUNT 4.23 M/uL (4.52-5.90); WHITE BLOOD CELL COUNT,WBC 11.02 K/uL (3.9-11.3)
[2023-12-19 20:27] LABS: A/G RATIO 0.9 (0.9-1.6); ALANINE AMINOTRANSFERASE,ALT 30 IU/L (14-63); ALBUMIN 3.5 g/dL (3.4-5.0); ALKALINE PHOSPHATASE 62 U/L (46-116); ASPARTATE AMNIOTRANSFERASE,AST 28 IU/L (15-37); BILIRUBIN TOTAL 0.7 mg/dL (0.2-1.0); BLOOD UREA NITROGEN,BUN 16 mg/dL (7.0-18.0); CALCIUM 8.2 mg/dL (8.5-10.1); CARBON DIOXIDE,CO2 28.8 mmol/L (21.0-32.0); CHLORIDE,CL 90 mmol/L (98-107); CREATININE 1.1 mg/dL (0.8-1.3); GLUCOSE RANDOM 111 mg/dL (74-106); POTASSIUM,K 3.4 mmol/L (3.5-5.1); PROTEIN TOTAL,TP 7.4 g/dL (6.4-8.2); SODIUM,NA 127 mmol/L (136-148)
[2023-12-19 20:30] LABS: ESTIMATED GFR 75 mL/min (>60)
[2023-12-19 20:43] LABS: INR 1.07 (0.86-1.11); PTT,PARTIAL THROMBOPLSTIN TIME 30.1 SEC (23.9-30.7)
[2023-12-19] MEDS: Cetirizine 10 MG Tab PO ONE (21:21)
[2023-12-19] MEDS: Dexamethasone 4 MG/ML SDV IVPUSH ONE (21:21)
== END 2023-12-20 00:23 | disposition home or self-care (01) ==
LOC: MW.ED 19:37
DX: T78.3XXA Angioneurotic edema, initial encounter (principal); I10 Essential (primary) hypertension; Z79.899 Other long term (current) drug therapy; Z91.018 Allergy to other foods
CPT/HCPCS: 36415; 80053; 84484; 85025; 85610; 85730; 86850; 86900; 86901; 93005; 96374; 96375; 99285; A9270; J1100; J2930; J3490; 93010; 99291

== ENCOUNTER 2024-02-21 14:22 | Observation (INO) | payer BC ==
[2024-02-21] MEDS ORDERED: Sodium Chloride 0.9% 10 ML Syringe FLUSH PRN (14:40)
[2024-02-21] MEDS ORDERED: Sodium Chloride 0.9% 2.5 ML Syringe FLUSH PRN (14:40)
[2024-02-21 15:39] LABS: BASOPHILS ABSOLUTE AUTO 0.05 K/uL (0.00-0.20); BASOPHILS PERCENT AUTO 0.8 % (0.0-1.0); EOSINOPHILS ABSOLUTE AUTO 0.09 K/uL (0.00-0.45); EOSINOPHILS PERCENT AUTO 1.5 % (0.0-6.0); HEMATOCRIT 37.8 % (42.0-52.0); HEMOGLOBIN 14.1 g/dL (14.0-18.0); IMMATURE GRAN ABSOLUTE AUTO 0.02 K/uL (0.00-0.05); IMMATURE GRAN PERCENT AUTO 0.3 % (0.0-0.4); LYMPHOCYTES ABSOLUTE AUTO 1.59 K/uL (1.00-4.80); LYMPHOCYTES PERCENT AUTO 25.9 % (24.0-44.0); MEAN CORPUSCULAR HEMOGLOBIN 34.1 pg (28.0-32.0); MEAN CORPUSCULAR HGB CONC 37.3 g/dL (32.0-36.0); MEAN CORPUSCULAR VOLUME 91.3 fL (83.0-99.0); MEAN PLATELET VOLUME 8.5 fL (9.4-12.4); MONOCYTES ABSOLUTE AUTO 0.56 K/uL (0.00-0.80); MONOCYTES PERCENT AUTO 9.1 % (0.0-8.0); NEUTROPHILS ABSOLUTE AUTO 3.82 K/uL (1.80-7.70); NEUTROPHILS PERCENT AUTO 62.4 % (41.0-71.0); PLATELET COUNT,PLT 231 K/uL (150-400); RED BLOOD CELL COUNT 4.14 M/uL (4.52-5.90); WHITE BLOOD CELL COUNT,WBC 6.13 K/uL (3.9-11.3)
[2024-02-21 16:09] LABS: A/G RATIO 1.1 (0.9-1.6); ALBUMIN 3.7 g/dL (3.4-5.0); BILIRUBIN TOTAL 0.6 mg/dL (0.2-1.0); CALCIUM 8.5 mg/dL (8.5-10.1); CARBON DIOXIDE,CO2 25.9 mmol/L (21.0-32.0); EST CRCL DRUG DOSING (CG) 79.48 mL/min; MAGNESIUM 1.7 mg/dL (1.8-2.4); POTASSIUM,K 3.5 mmol/L (3.5-5.1)
[2024-02-21 17:48] LABS: APPEARANCE,URINE CLEAR; BILIRUBIN,URINE NEGATIVE (NEGATIVE); COLOR,URINE YELLOW; GLUCOSE,URINE NEGATIVE (NEGATIVE); KETONES,URINE NEGATIVE (NEGATIVE); LEUKOCYTE ESTERASE,URINE NEGATIVE (NEGATIVE); NITRITE,URINE NEGATIVE (NEGATIVE); OCCULT BLOOD,URINE NEGATIVE (NEGATIVE); PH,URINE 6.5 (5.0-8.0); PROTEIN,URINE NEGATIVE (NEGATIVE); UROBILINOGEN,URINE 0.2 EU/dL (<2.0)
[2024-02-21] MEDS ORDERED: Ondansetron 4 MG Tab.DIS PO PRN (17:50)
[2024-02-21] MEDS ORDERED: Acetaminophen 325 MG Tab PO PRN (17:50)
[2024-02-21] MEDS ORDERED: oxyCODONE 5 MG Tab PO PRN (17:50)
[2024-02-21] MEDS ORDERED: Polyethylene Glycol 3350 Powder 17 GM Packet PO PRN (17:50)
[2024-02-21] MEDS ORDERED: Naloxone 0.4 MG/ML SDV IVPUSH PRN (17:50)
[2024-02-21] MEDS ORDERED: Morphine 2 MG/ML SYRINGE IVPUSH PRN (17:50)
[2024-02-21] MEDS: Magnesium Sulfate/Water 2 GM in Premix Bag 1 BAG IV ONE (17:55)
[2024-02-21] MEDS: Enoxaparin 40 MG/0.4 ML Syringe SUBCUT SCH (18:42)
[2024-02-21] MEDS: Sodium Chloride 0.9% 1,000 ML IV STA (18:42)
[2024-02-21] MEDS: Metoprolol Tartrate 50 MG Tab PO SCH (19:35)
[2024-02-21 22:50] LABS: CARBON DIOXIDE,CO2 28.1 mmol/L (21.0-32.0); CREATININE 1.1 mg/dL (0.8-1.3); EST CRCL DRUG DOSING (CG) 72.26 mL/min; POTASSIUM,K 3.5 mmol/L (3.5-5.1)
[2024-02-22 05:54] LABS: BASOPHILS ABSOLUTE AUTO 0.04 K/uL (0.00-0.20); BASOPHILS PERCENT AUTO 0.7 % (0.0-1.0); EOSINOPHILS PERCENT AUTO 1.8 % (0.0-6.0); HEMATOCRIT 39.1 % (42.0-52.0); HEMOGLOBIN 14.1 g/dL (14.0-18.0); IMMATURE GRAN ABSOLUTE AUTO 0.01 K/uL (0.00-0.05); IMMATURE GRAN PERCENT AUTO 0.2 % (0.0-0.4); LYMPHOCYTES ABSOLUTE AUTO 1.57 K/uL (1.00-4.80); LYMPHOCYTES PERCENT AUTO 27.5 % (24.0-44.0); MEAN CORPUSCULAR HEMOGLOBIN 33.6 pg (28.0-32.0); MEAN CORPUSCULAR HGB CONC 36.1 g/dL (32.0-36.0); MEAN CORPUSCULAR VOLUME 93.1 fL (83.0-99.0); MEAN PLATELET VOLUME 8.5 fL (9.4-12.4); MONOCYTES ABSOLUTE AUTO 0.65 K/uL (0.00-0.80); MONOCYTES PERCENT AUTO 11.4 % (0.0-8.0); NEUTROPHILS ABSOLUTE AUTO 3.33 K/uL (1.80-7.70); NEUTROPHILS PERCENT AUTO 58.4 % (41.0-71.0); PLATELET COUNT,PLT 201 K/uL (150-400)
[2024-02-22 06:19] LABS: A/G RATIO 1.1 (0.9-1.6); ALBUMIN 3.5 g/dL (3.4-5.0); BILIRUBIN TOTAL 0.7 mg/dL (0.2-1.0); CALCIUM 8.5 mg/dL (8.5-10.1); CARBON DIOXIDE,CO2 30.3 mmol/L (21.0-32.0); EST CRCL DRUG DOSING (CG) 79.48 mL/min; MAGNESIUM 2.1 mg/dL (1.8-2.4); POTASSIUM,K 4.1 mmol/L (3.5-5.1); PROTEIN TOTAL,TP 6.7 g/dL (6.4-8.2)
== END 2024-02-22 12:15 | disposition home or self-care (01) ==
LOC: MW.ED 14:22 → MW.MS 17:00
PROVIDERS: ADMIT Family Medicine; ATTEND Family Medicine
DX: E87.1 Hypo-osmolality and hyponatremia (principal); I10 Essential (primary) hypertension; E66.9 Obesity, unspecified; Z79.899 Other long term (current) drug therapy; Z91.018 Allergy to other foods
CPT/HCPCS: 36415; 71046; 80048; 80053; 81003; 83735; 83930; 83935; 84300; 84484; 85025; 93005; 99285; A9270; J1650; J3475; J7030; 93010; 96365; 96366; 96372; G0378

== ENCOUNTER 2025-04-17 08:54 | Emergency (ER) | payer MEDICARE, BC ==
[2025-04-17 09:42] LABS: BASOPHILS ABSOLUTE AUTO 0.05 K/uL (0.00-0.20); BASOPHILS PERCENT AUTO 0.6 % (0.0-1.0); EOSINOPHILS ABSOLUTE AUTO 0.12 K/uL (0.00-0.45); EOSINOPHILS PERCENT AUTO 1.5 % (0.0-6.0); IMMATURE GRAN ABSOLUTE AUTO 0.02 K/uL (0.00-0.05); IMMATURE GRAN PERCENT AUTO 0.2 % (0.0-0.4); LYMPHOCYTES ABSOLUTE AUTO 1.67 K/uL (1.00-4.80); LYMPHOCYTES PERCENT AUTO 20.5 % (24.0-44.0); MEAN PLATELET VOLUME 9.0 fL (9.4-12.4); MONOCYTES ABSOLUTE AUTO 0.70 K/uL (0.00-0.80); MONOCYTES PERCENT AUTO 8.6 % (0.0-8.0); NEUTROPHILS ABSOLUTE AUTO 5.57 K/uL (1.80-7.70); NEUTROPHILS PERCENT AUTO 68.6 % (41.0-71.0); NRBC ABSOLUTE 0.00 K/uL (0.00-0.02); NRBC PERCENT 0.0 /100WBC (0.0-0.2); PLATELET COUNT,PLT 222 K/uL (150-400); RED BLOOD CELL COUNT 4.50 M/uL (4.52-5.90); WHITE BLOOD CELL COUNT,WBC 8.13 K/uL (3.9-11.3)
[2025-04-17 09:48] LABS: BLOOD UREA NITROGEN,BUN 16.0 mg/dL (7.0-18.0); CARBON DIOXIDE,CO2 24.5 mmol/L (21.0-32.0); CHLORIDE,CL 100.0 mmol/L (98-107); CREATININE 1.0 mg/dL (0.8-1.3); EST CRCL DRUG DOSING (CG) 78.44 mL/min; GLUCOSE RANDOM 121.0 mg/dL (74-106); POTASSIUM,K 4.1 mmol/L (3.5-5.1); SODIUM,NA 134.0 mmol/L (136-148)
[2025-04-17 09:52] LABS: ESTIMATED GFR 84.0 mL/min (>60)
== END 2025-04-17 10:34 | disposition home or self-care (01) ==
LOC: MW.ED 08:54
DX: R00.0 Tachycardia, unspecified (principal); I10 Essential (primary) hypertension; Z91.018 Allergy to other foods; Z79.82 Long term (current) use of aspirin; Z79.899 Other long term (current) drug therapy
CPT/HCPCS: 36415; 80048; 83735; 85025; 93005; 99285; A9270; 99283

== ENCOUNTER 2025-07-14 20:57 | Emergency (ER) | payer MEDICARE, BC ==
[2025-07-14] MEDS ORDERED: Sodium Chloride 0.9% 2.5 ML Syringe FLUSH PRN (21:02)
[2025-07-14] MEDS ORDERED: Sodium Chloride 0.9% 10 ML Syringe FLUSH PRN (21:02)
[2025-07-14 21:16] LABS: BASOPHILS ABSOLUTE AUTO 0.05 K/uL (0.00-0.20); BASOPHILS PERCENT AUTO 0.4 % (0.0-1.0); EOSINOPHILS ABSOLUTE AUTO 0.28 K/uL (0.00-0.45); EOSINOPHILS PERCENT AUTO 2.4 % (0.0-6.0); IMMATURE GRAN ABSOLUTE AUTO 0.03 K/uL (0.00-0.05); IMMATURE GRAN PERCENT AUTO 0.3 % (0.0-0.4); LYMPHOCYTES ABSOLUTE AUTO 1.95 K/uL (1.00-4.80); LYMPHOCYTES PERCENT AUTO 16.5 % (24.0-44.0); MEAN PLATELET VOLUME 9.7 fL (9.4-12.4); MONOCYTES ABSOLUTE AUTO 1.14 K/uL (0.00-0.80); MONOCYTES PERCENT AUTO 9.6 % (0.0-8.0); NEUTROPHILS ABSOLUTE AUTO 8.39 K/uL (1.80-7.70); NEUTROPHILS PERCENT AUTO 70.8 % (41.0-71.0); NRBC ABSOLUTE 0.00 K/uL (0.00-0.02); NRBC PERCENT 0.0 /100WBC (0.0-0.2); PLATELET COUNT,PLT 242 K/uL (150-400); RED BLOOD CELL COUNT 4.28 M/uL (4.52-5.90); WHITE BLOOD CELL COUNT,WBC 11.84 K/uL (3.9-11.3)
[2025-07-14] MEDS ORDERED: Nitroglycerin 0.4 MG Tab.SL SL PRN (21:20)
[2025-07-14 22:04] LABS: A/G RATIO 1.2 (0.9-1.6); ALANINE AMINOTRANSFERASE,ALT 27.0 IU/L (14-63); ASPARTATE AMNIOTRANSFERASE,AST 20.0 IU/L (15-37); BILIRUBIN TOTAL 0.4 mg/dL (0.2-1.0); BLOOD UREA NITROGEN,BUN 25.0 mg/dL (7.0-18.0); CARBON DIOXIDE,CO2 25.7 mmol/L (21.0-32.0); CHLORIDE,CL 96.0 mmol/L (98-107); CREATININE 1.0 mg/dL (0.8-1.3); EST CRCL DRUG DOSING (CG) 78.44 mL/min; GLUCOSE RANDOM 103.0 mg/dL (74-106); POTASSIUM,K 4.0 mmol/L (3.5-5.1); PROTEIN TOTAL,TP 7.2 g/dL (6.4-8.2); SODIUM,NA 132.0 mmol/L (136-148)
[2025-07-14 22:12] LABS: ESTIMATED GFR 84.0 mL/min (>60)
== END 2025-07-14 23:44 | disposition home or self-care (01) ==
LOC: MW.ED 20:57
DX: R07.9 Chest pain, unspecified (principal); I10 Essential (primary) hypertension; E78.00 Pure hypercholesterolemia, unspecified; Z88.8 Allergy status to other drugs, medicaments and biological substances; Z91.018 Allergy to other foods; Z79.82 Long term (current) use of aspirin; Z90.49 Acquired absence of other specified parts of digestive tract
CPT/HCPCS: 36415; 71045; 80053; 84484; 85025; 93005; 99285; A9270; 93010; 99283